=== PATIENT | female | born 1940 | race Caucasian/White ===

== ENCOUNTER 2021-05-07 16:22 | Emergency (ER) | payer MEDICARE ==
[2021-05-07] MEDS ORDERED: GLUCAGON 1 MG/ML VIAL IVP STA (20:13)
[2021-05-07] MEDS ORDERED: RX INFO: IV CONTRAST WAS GIVEN 1 EACH MISC MISCELLANE PRN (20:13)
[2021-05-07] MEDS ORDERED: DIAZEPAM 5 MG/ML 2 ML INJ IVP STA (20:13)
[2021-05-07] MEDS ORDERED: SODIUM CHLORIDE 0.9% 500 ML 500 ML IV STA (20:14)
[2021-05-07] MEDS ORDERED: NITROGLYCERIN SL TABS 0.4 MG TAB SUBLINGUAL STA (20:14)
[2021-05-07 20:55] LABS: Basophils % (A) 1 %; Eosinophils # (A) 0.1 k/uL (0-0.7); Eosinophils % (A) 2 %; HCT 47.8 % (34.0-46.0); HGB 16.2 gm/dL (11.4-16.0); Lymphocytes # (A) 0.8 k/uL (1.0-4.8); Lymphocytes % (A) 13 %; MCH 35.3 pg (25.0-35.0); Macrocytosis Slight; Mean Platelet Volume 8.7; Monocytes # (A) 0.2 k/uL (0-1.0); Monocytes % (A) 3 %; Neutrophils # (A) 5.2 k/uL (1.3-7.7); Neutrophils % (A) 81 %; Platelet Count 157 k/uL (150-450); RDW 13.3 % (11.5-15.5); WBC 6.4 k/uL (3.8-10.6)
[2021-05-07 21:04] LABS: Partial Thromboplastin Time 22.4 sec (22.0-30.0); Prothrombin Time 10.9 sec (9.0-12.0)
[2021-05-07 21:06] LABS: ALT 23 U/L (4-34); AST 36 U/L (14-36); African American GFR (CKD) >90 (>60 ml/min/1.73 sqM); Albumin 4.3 g/dL (3.5-5.0); Alkaline Phosphatase 48 U/L (38-126); Anion Gap 14 mmol/L; Blood Urea Nitrogen 24 mg/dL (7-17); Calcium 9.7 mg/dL (8.4-10.2); Carbon Dioxide 21 mmol/L (22-30); Chloride 104 mmol/L (98-107); Glucose 97 mg/dL (74-99); Non-African American GFR(CKD) 87 (>60 ml/min/1.73 sqM); Potassium 4.1 mmol/L (3.5-5.1); Sodium 139 mmol/L (137-145); Total Bilirubin 2.3 mg/dL (0.2-1.3)
--- NOTE | 2021-05-07 21:59 | CT ---
EXAMINATION TYPE: CT brain wo con DATE OF EXAM: 05/07/2021 COMPARISON: None HISTORY: c/o dysphagia, hx of cva CT DLP: 1139.2 mGycm Automated exposure control for dose reduction was used. There is cerebral cortical atrophy. There is no mass effect or midline shift. There is no sign of int racranial hemorrhage. There is hypodensity in the periventricular white matter. There is prominent Vi rchow-Shawn spaces bilaterally. There is 1 cm lacunar infarct anterior left internal capsule. IMPRESSION: Moderate atrophy. 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 This probably old right insular lacunar infarct. No acute intracranial abnormality.
--- NOTE | 2021-05-07 22:12 | CT ---
EXAMINATION TYPE: CT chest w con DATE OF EXAM: 05/07/2021 COMPARISON: HISTORY: c/o dysphagia CT DLP: 241.7 mGycm Automated exposure control for dose reduction was used. CONTRAST: Performed with IV Contrast, patient injected with 100 mL of Isovue 300. Images obtained from the thoracic inlet through the diaphragm with IV contrast. There is a very large hiatal hernia. Thoracic aorta is tortuous and atherosclerotic. Pulmonary arteri es appear intact. I see no filling defect. There is some mild atelectasis at the lung bases bilateral ly. There is no mediastinal adenopathy. There is thoracolumbar severe kyphotic deformity with old mul tiple compression fractures. There is old manubrial healed fracture. There is compression fracture of T5 and T6 and T8 and T11 and T12 and L1 up to 80%. IMPRESSION: There is some patchy atelectasis at the lung bases. Very large hiatal hernia with intrathoracic stoma ch. Correlation with surgical history needed. There is possible previous esophageal resection. Multip le old thoracic compression fractures with deformity. No suspicious pulmonary mass.
--- NOTE | 2021-05-07 22:27 | ED ---
General Adult HPI - General Chief complaint: ENT Stated complaint: Unable to Swallow Time Seen by Provider: 05/07/21 19:09 Source: patient Mode of arrival: wheelchair Limitations: no limitations - History of Present Illness Initial comments: 80-year-old female with past history of hiatal hernia presents emergency Department with inability to swallow for 3 days. Patient had surgery in 2004 at [facility] for a hiatal hernia. States that she had mesh placed. She ended up having erosion of the mesh which perforated. She had repeat surger y at [facility] by Dr. Leo Seay for which she had a partial distal esophagectomy and repair of her stomach. States that she has not had any issues in the past 15 years with GI symptoms and no longer follows with a GI doctor. On Friday she was eating dinner (small portions of beef) when she had sudden onset of inability to swallow. Feels that she has a plug in her throat. Unable to eat any food or drink any water. She had an appointment with her primary care today however they told her to cancel come to the ER for possible stroke evaluation. Patient has had previous history of stroke. Denies any speech difficulties. No numbness, tingling or weakness in her extremities. No fever. No other alleviating, preciptiating or modifying factors - Related Data Home Medications Medication Instructions Recorded Confirmed Apixaban [Eliquis] 5 mg PO BID 05/07/21 05/07/21 Celecoxib [CeleBREX] 200 mg PO HS 05/07/21 05/07/21 Cetirizine HCl [Zyrtec] 10 mg PO DAILY 05/07/21 05/07/21 Pravastatin Sodium [Pravachol] 40 mg PO HS 05/07/21 05/07/21 Sotalol [Betapace] 80 mg PO BID 05/07/21 05/07/21 metHOTREXate sodium [Methotrexate] 15 mg PO TH 05/07/21 05/07/21 predniSONE 5 mg PO DAILY 05/07/21 05/07/21 Allergies Allergy/AdvReac Type Severity Reaction Status Date / Time No Known Allergies Allergy Verified 05/07/21 21:57 Review of Systems ROS Statement: Those systems with pertinent positive or pertinent negative responses have been documented in the HPI. ROS Other: All systems not noted in ROS Statement are negative. 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 Absent: scleral icterus, conjunctival injection, periorbital swelling ENT exam: Present: normal exam, mucous membranes moist Neck exam: Present: normal inspection. Absent: tenderness, meningismus, lymphadenopathy Respiratory exam: Present: normal lung sounds bilaterally. Absent: respiratory distress, wheezes, rales, rhonchi, stridor Cardiovascular Exam: Present: regular rate, normal rhythm, normal heart sounds. Absent: systolic murmur, diastolic murmur, rubs, gallop, clicks GI/Abdominal exam: Present: soft, normal bowel sounds. Absent: distended, tenderness, guarding, rebound, rigid Extremities exam: Present: normal inspection, full ROM, normal capillary refill. Absent: tenderness, pedal edema, joint swelling, calf tenderness Back exam: Present: normal inspection Neurological exam: Present: alert, oriented X3, CN II-XII intact Psychiatric exam: Present: normal affect, normal mood Skin exam: Present: warm, dry, intact, normal color. Absent: rash Course Vital Signs 05/07/21 05/07/21 05/07/21 17:07 22:00 23:51 Temperature 96.9 F L Pulse Rate 96 90 90 Respiratory 18 16 16 Rate Blood Pressure 141/100 122/92 107/89 O2 Sat by Pulse 95 98 98 Oximetry 05/08/21 05/08/21 05/08/21 05:00 07:00 07:12 Temperature 98.1 F Pulse Rate 88 92 84 Respiratory 16 16 18 Rate Blood Pressure 112/79 101/73 101/73 O2 Sat by Pulse 98 98 95 Oximetry 05/08/21 05/08/21 05/09/21 12:11 18:00 04:45 Temperature 98.7 F Pulse Rate 75 82 64 Respiratory 16 18 Rate Blood Pressure 135/76 147/107 132/94 O2 Sat by Pulse 97 98 Oximetry 05/09/21 10:00 Temperature 98.0 F Pulse Rate 94 Respiratory 17 Rate Blood Pressure 140/99 O2 Sat by Pulse 96 Oximetry - Reevaluation(s) Reevaluation #1: Spoke with Roma nawaf [facility] - refused transfer 05/07/21 22:35 Reevaluation #2: 05/07/21 22:45 Dr. Mccarthy - refused consultation Reevaluation #3: [facility] refused 05/07/21 23:34 Reevaluation #4: [facility] refused, [facility] refused 05/08/21 00:35 [facility] refused 05/08/21 00:41 Spoke with Taco Aparicio - needs covid test result before looking at case 05/08/21 00:45 Reevaluation #5: Speaking with Taco Hicks - Dr. Knowles accepts. Awaiting bed placement. 05/08/21 01:50 Patient reevaluated by myself. Still awaiting bed at [facility]. Patient is able to drink and eat pudding. She is able to take her medications. Requesting to go home at this time. Patient will be discharged home. Given copies of her workup here. Instructed that she needs to follow up with the GI surgeon as I expect that this will become a recurrent issue until she is evaluated by them. Return to the emergency room for any new or worsening symptoms. Patient discharged 05/09/21 12:34 EKG Findings - EKG Comments: EKG Findings:: EKG demonstrates sinus rhythm with a rate of 96. SC interval 186. QRS 126. QTC of 543. ST segment depression V4 through V6 as well as [address] segment elevation. Medical Decision Making - Medical Decision Making Upon arrival patient was placed into room 11. A thorough history and physical exam was performed. IV is established. Patient was given 2 mg of Valium, 1 g of glucagon and a sublingual nitro for her symptoms. Laboratory studies are conducted and reviewed. It patient does go over for CT of her brain to rule out stroke. It demonstrates old lacunar infarct of the left internal capsule however nothing new. CT of the chest does demonstrate a large intrathoracic hiatal hernia. Patient does vomit up the secretions made with the sublingual nitro and has no improvement in her symptoms with the glucagon and Valium. I did call and speak with Dr. Mccarthy who refused to particpitate in the patients care. Recommended transfer to an outside facility with GI coverage. Called and spoke with several facilities. Finally received approval for transfer to [facility] at 1:55 am. [facility] will call back with a bed number at this time. Patient updated to her care and agreed to the treatment plan - Lab Data Result diagrams: 05/07/21 20:41 05/07/21 20:41 Lab Results 05/07/21 05/07/21 05/07/21 Range/Units 20:41 20:41 20:41 WBC 6.4 (3.8-10.6) k/uL RBC 4.60 (3.80-5.40) m/uL Hgb 16.2 H (11.4-16.0) gm/dL Hct 47.8 H (34.0-46.0) % MCV 104.0 H (80.0-100.0) fL MCH 35.3 H (25.0-35.0) pg MCHC 34.0 (31.0-37.0) g/dL RDW 13.3 (11.5-15.5) % Plt Count 157 (150-450) k/uL MPV 8.7 Neutrophils % 81 % Lymphocytes % 13 % Monocytes % 3 % Eosinophils % 2 % Basophils % 1 % Neutrophils # 5.2 (1.3-7.7) k/uL Lymphocytes # 0.8 L (1.0-4.8) k/uL Monocytes # 0.2 (0-1.0) k/uL Eosinophils # 0.1 (0-0.7) k/uL Basophils # 0.0 (0-0.2) k/uL Macrocytosis Slight PT 10.9 (9.0-12.0) sec INR 1.0 (<1.2) APTT 22.4 (22.0-30.0) sec Sodium 139 (137-145) mmol/L Potassium 4.1 (3.5-5.1) mmol/L Chloride 104 (98-107) mmol/L Carbon Dioxide 21 L (22-30) mmol/L Anion Gap 14 mmol/L BUN 24 H (7-17) mg/dL Creatinine 0.59 (0.52-1.04) mg/dL Est GFR (CKD-EPI)AfAm >90 (>60 ml/min/1.73 sqM) Est GFR (CKD-EPI)NonAf 87 (>60 ml/min/1.73 sqM) Glucose 97 (74-99) mg/dL Calcium 9.7 (8.4-10.2) mg/dL Total Bilirubin 2.3 H (0.2-1.3) mg/dL AST 36 (14-36) U/L ALT 23 (4-34) U/L Alkaline Phosphatase 48 (38-126) U/L Troponin I (0.000-0.034) ng/mL Total Protein 8.0 (6.3-8.2) g/dL Albumin 4.3 (3.5-5.0) g/dL Coronavirus (PCR) (Not Detectd) 05/07/21 05/07/21 Range/Units 20:41 23:49 WBC (3.8-10.6) k/uL RBC (3.80-5.40) m/uL Hgb (11.4-16.0) gm/dL Hct (34.0-46.0) % MCV (80.0-100.0) fL MCH (25.0-35.0) pg MCHC (31.0-37.0) g/dL RDW (11.5-15.5) % Plt Count (150-450) k/uL MPV Neutrophils % % Lymphocytes % % Monocytes % % Eosinophils % % Basophils % % Neutrophils # (1.3-7.7) k/uL Lymphocytes # (1.0-4.8) k/uL Monocytes # (0-1.0) k/uL Eosinophils # (0-0.7) k/uL Basophils # (0-0.2) k/uL Macrocytosis PT (9.0-12.0) sec INR (<1.2) APTT (22.0-30.0) sec Sodium (137-145) mmol/L Potassium (3.5-5.1) mmol/L Chloride (98-107) mmol/L Carbon Dioxide (22-30) mmol/L Anion Gap mmol/L BUN (7-17) mg/dL Creatinine (0.52-1.04) mg/dL Est GFR (CKD-EPI)AfAm (>60 ml/min/1.73 sqM) Est GFR (CKD-EPI)NonAf (>60 ml/min/1.73 sqM) Glucose (74-99) mg/dL Calcium (8.4-10.2) mg/dL Total Bilirubin (0.2-1.3) mg/dL AST (14-36) U/L ALT (4-34) U/L Alkaline Phosphatase (38-126) U/L Troponin I <0.012 (0.000-0.034) ng/mL Total Protein (6.3-8.2) g/dL Albumin (3.5-5.0) g/dL Coronavirus (PCR) Not Detected (Not Detectd) Disposition Clinical Impression: Dysphagia, Hx of esophagectomy, Hiatal hernia Disposition: HOME SELF-CARE Condition: Stable Instructions (If sedation given, give patient instructions): Chronic Dysphagia (DC) Additional Instructions: Please follow-up with the GI doctor for further evaluation of your symptoms - either Dr. Machado or your GI surgeon at of . Return to the emergency room for any new or worsening symptoms Is patient prescribed a controlled substance at d/c from ED?: No Referrals: Analilia Fernández MD [Primary Care Provider] - 1-2 days Brionna Machado MD [STAFF PHYSICIAN] - 1-2 days Time of Disposition: 12:39 - Out of Hospital Transfer - Req. Specs Out of Hospital Transfer - Requested Specifics: Other Non-Acute ([facility])
[2021-05-09 11:36] VITALS: BP 140/99; PULSE 94; RESP 17; TEMP 98
[2021-05-09] MEDS ORDERED: IBUPROFEN 400 MG TAB PO STA (13:46)
== END 2021-05-09 14:12 | disposition home or self-care (01) ==
LOC: EC 16:22
DX: R13.10 Dysphagia, unspecified (principal); K44.9 Diaphragmatic hernia without obstruction or gangrene; Z90.49 Acquired absence of other specified parts of digestive tract; Z20.822 Contact with and (suspected) exposure to COVID-19
CPT/HCPCS: 36415; 93005; 80053; 84484; 85025; 85610; 85730; 87635; 70450; 71260; 96374; 96375; 96361; 99285; J1610; J3360; Q9967